=== PATIENT | male | born 1950 | race African-American/Black ===

== ENCOUNTER 2018-03-08 23:10 | Inpatient (IN) | payer MEDICARE, MEDICAID ==
[~2018-03-08] VITALS: Ht 180.3 cm; Wt 97.5 kg
[2018-03-09] MEDS ORDERED: ONDANSETRON HCL 4MG/2ML INJ IV STA (00:07)
[2018-03-09] MEDS ORDERED: MORPHINE SULFATE 10 MG/ML CPJ IV ONE (00:15)
[2018-03-09] MEDS ORDERED: ALBUMIN HUMAN 12.5G/250ML (5%) IV ONE (00:30)
[2018-03-09] MEDS ORDERED: SODIUM CHLORIDE 0.9% 500 ML IV ONE (00:30)
[2018-03-09] MEDS ORDERED: NOREPINEPHRINE 4 MG in DEXT 5% WATER 250 ML IV STA (00:58)
[2018-03-09] MEDS ORDERED: SODIUM CHLORIDE 0.9% 1000ML BAG (SEPSIS BOLUS) IV ONE (01:00)
[2018-03-09] MEDS ORDERED: LEVOFLOXACIN 750MG PREMIX 150 ML IV ONE (01:00)
[2018-03-09] MEDS ORDERED: METRONIDAZOLE 500 MG PREMIX 100 ML IV ONE (01:00)
[2018-03-09] MEDS ORDERED: PIPERACILLIN/TAZ 3.375G PREMIX 50 ML IV ONE (01:00)
[2018-03-09 01:54] LABS: BG BASE EXCESS 1.4 mmol/L (-2.0-2.0); BG CARBOXYHEMOGLOBIN 0.9 % (0.5-1.5); BG DEOXYHEMOGLOBIN 2.3 % (0.0-5.0); BG FRACTION INSPIRED OXYGEN 36; BG HCO3 ACT 24.9 mmol/L (22.0-26.0); BG METHEMOGLOBIN 0.4 % (0.0-1.5); BG OXYGEN SATURATION 97.7 % (92.0-98.5); BG OXYHEMOGLOBIN 96.4 % (94.0-97.0); BG PCO2 35.6 mmHg (35.0-45.0); BG PH 7.462 (7.350-7.450); BG PO2 99.9 mmHg (75.0-100.0); BG SAMPLE SITE RIGHT RADIAL; BG TOTAL HEMOGLOBIN 13.5 g/dL (12.0-18.0); BG VENT MODE NASAL CANNULA
[2018-03-09 02:02] LABS: HEMATOCRIT. 38.3 % (42.0-52.0); HEMOGLOBIN. 12.5 g/dL (14.0-18.0); MEAN CORPUSCULAR HEMOGLOBIN 27.7 pg (28.0-32.0); MEAN CORPUSCULAR VOLUME 85.3 fL (80.0-94.0); MEAN PLATELET VOLUME 7.3 fl (7.4-10.4); PLATELET 592 x1000/uL (130-400); RED BLOOD CELL COUNT 4.49 mill/uL (4.7-6.1); RED CELL DISTRIBUTION WIDTH 14.3 % (11.6-14.6)
[2018-03-09 02:13] LABS: CHLORIDE 91 mEq/L (98-107); INR 1.4; PROTHROMBIN TIME 13.6 sec (9.1-11.1)
[2018-03-09 02:37] LABS: PLATELET ESTIMATE INCREASED
[2018-03-09] MEDS: NOREPINEPHRINE 4MG/250ML PMX 250 ML IV PRN ×2 (02:46→18:07)
[2018-03-09] MEDS ORDERED: LORAZEPAM 2MG/ML CPJ IV PRN (06:30)
[2018-03-09] MEDS ORDERED: IPRATROPIUM/ALBUTEROL 0.5-3(2.5)MG/3ML NEB INH PRN (06:30)
[2018-03-09] MEDS ORDERED: NA PHOS,M-B/NA PHOS,DI-BA ENEMA 118ML PR PRN (06:30)
[2018-03-09] MEDS ORDERED: GUAIFENESIN 200MG/10ML SUGAR FREE UDC PO PRN (06:30)
[2018-03-09] MEDS ORDERED: CLONIDINE 0.1MG TABLET PO PRN (06:30)
[2018-03-09] MEDS ORDERED: DOCUSATE SODIUM 100MG CAPSULE PO PRN (06:30)
[2018-03-09] MEDS ORDERED: DIPHENHYDRAMINE 50MG/ML VIAL IV PRN (06:30)
[2018-03-09] MEDS ORDERED: HYDROCODONE/ACETAMINOPHEN 5/325MG TABLET PO PRN (06:30)
[2018-03-09] MEDS ORDERED: ACETAMINOPHEN 325MG TABLET PO PRN (06:30)
[2018-03-09] MEDS ORDERED: MAGNESIUM/ALUMINUM HYDROXIDE/SIMETHICONE 30ML UDC PO PRN (06:30)
[2018-03-09] MEDS ORDERED: MORPHINE SULFATE 4 MG/ML CPJ (NOT FOR IM USE) IV PRN (06:30)
[2018-03-09] MEDS ORDERED: ENOXAPARIN 40MG/0.4ML SYR SUBCUT NR (08:45)
[2018-03-09] MEDS ORDERED: DEXT 5%/0.45% NACL 1000ML 1,000 ML IV SCH (10:00)
[2018-03-09 13:34] LABS: CLARITY URINE TURBID (CLEAR); COLOR URINE DARK YELLOW (YELLOW); KETONES URINE TRACE (NEGATIVE); LEUKOCYTE ESTERASE URINE TRACE (NEGATIVE); NITRITE URINE NEGATIVE (NEGATIVE); OCCULT BLOOD URINE NEGATIVE (NEGATIVE); PROTEIN URINE 1+ (NEGATIVE); SPECIFIC GRAVITY URINE 1.019 (1.005-1.030)
[2018-03-09 13:59] LABS: *AMPHETAMINES SCREEN URINE NEGATIVE (NEGATIVE); *BARBITURATES SCREEN URINE NEGATIVE (NEGATIVE); *BENZODIAZEPINES SCREEN URINE NEGATIVE (NEGATIVE); *COCAINE SCREEN URINE NEGATIVE (NEGATIVE); METHADONE URINE SCREEN NEGATIVE (NEGATIVE); OPIATES URINE SCREEN NEGATIVE (NEGATIVE)
[2018-03-09 14:00] LABS: CANNABINOID URINE SCREEN NEGATIVE (NEGATIVE); PHENCYCLIDINE URINE SCREEN NEGATIVE (NEGATIVE)
[2018-03-09] MEDS ORDERED: METRONIDAZOLE 500 MG PREMIX 100 ML IV SCH ×2 (14:00)
[2018-03-09] MEDS ORDERED: HYDRALAZINE 20MG/ML VIAL IV PRN (15:00)
[2018-03-09 15:45] LABS: CHLORIDE 94 mEq/L (98-107)
[2018-03-09] MEDS ORDERED: PIPERACILLIN/TAZ 3.375G PREMIX 50 ML IV NR (19:45)
[2018-03-09] MEDS: ENOXAPARIN 30MG/0.3ML SYR SUBCUT SCH (22:10)
[2018-03-10] VITALS (60 sets, daily range): BP systolic 62–162; BP diastolic 34–94
[2018-03-10] MEDS ORDERED: LEVOFLOXACIN 500MG PREMIX 100 ML IV SCH ×2 (02:00→10:15)
[2018-03-10] MEDS ORDERED: VANCOMYCIN 1500MG in DEXTROSE 5% WATER 250ML IV NR (03:00)
[2018-03-10] MEDS ORDERED: PIPERACILLIN/TAZ 3.375G PREMIX 50 ML IV SCH (04:00)
[2018-03-10] MEDS ORDERED: PIPERACILLIN/TAZ 2.25G PREMIX 50 ML IV NR (06:00)
[2018-03-10 06:39] LABS: CHLORIDE 95 mEq/L (98-107)
[2018-03-10 06:46] LABS: LDL CHOLESTEROL 46 mg/dL (5-100)
[2018-03-10 06:47] LABS: HDL CHOLESTEROL 31 mg/dL (40-59)
[2018-03-10 06:48] LABS: T4 FREE 1.46 ng/dL (0.76-1.46)
[2018-03-10 06:49] LABS: BASOPHILS % 0.3 % (0.0-2.0); EOSINOPHILS % 0.3 % (0.0-5.0); HEMATOCRIT. 37.2 % (42.0-52.0); HEMOGLOBIN. 12.1 g/dL (14.0-18.0); LYMPHOCYTES % 8.2 % (20.0-50.0); MEAN CORPUSCULAR HEMOGLOBIN 27.7 pg (28.0-32.0); MEAN CORPUSCULAR VOLUME 85.1 fL (80.0-94.0); MEAN PLATELET VOLUME 7.1 fl (7.4-10.4); MONOCYTES % 8.3 % (2.0-8.0); NEUTROPHILS % 82.9 % (40.0-76.0); PLATELET 523 x1000/uL (130-400); RED BLOOD CELL COUNT 4.37 mill/uL (4.7-6.1); RED CELL DISTRIBUTION WIDTH 14.8 % (11.6-14.6)
[2018-03-10] MEDS ORDERED: NOREPINEPHRINE 4 MG in DEXT 5% WATER 250 ML IV STA (06:50)
[2018-03-10] MEDS ORDERED: NOREPINEPHRINE 4 MG in DEXT 5% WATER 250 ML IV PRN (07:00)
[2018-03-10] MEDS ORDERED: PROPOFOL 200MG/20ML VIAL IV ONE (08:50)
[2018-03-10] MEDS ORDERED: ROCURONIUM BROMIDE 10MG/ML VIAL 5ML IV ONE ×2 (08:50→10:02)
[2018-03-10] MEDS ORDERED: MIDAZOLAM HCL 2 MG/2 ML VIAL ONE (08:51)
[2018-03-10] MEDS ORDERED: EPHEDRINE SULFATE 50MG/ML VIAL ONE (08:52)
[2018-03-10] MEDS ORDERED: PHENYLEPHRINE HCL 10 MG/ML 1ML (IV VIAL) IV ONE (08:52)
[2018-03-10] MEDS ORDERED: FENTANYL CITRATE/PF 50MCG/ML 2ML VIAL ONE (08:56)
[2018-03-10] MEDS ORDERED: ONDANSETRON HCL 4MG/2ML INJ ONE (08:56)
[2018-03-10] MEDS ORDERED: CEFAZOLIN SODIUM 1000MG/VIAL ONE (09:50)
[2018-03-10] MEDS ORDERED: GLYCOPYRROLATE 0.2 MG/ML 2ML VIAL ONE ×2 (10:08→10:23)
[2018-03-10] MEDS ORDERED: NEOSTIGMINE METHYLSULFATE 1MG/ML 10 ML VIAL ONE ×2 (10:08→11:01)
[2018-03-10] MEDS ORDERED: ONDANSETRON HCL 4MG/2ML INJ IV PRN (10:15)
[2018-03-10] MEDS ORDERED: SODIUM CHLORIDE 0.9% 1,000 ML IV ONE ×2 (12:00→20:30)
[2018-03-10] MEDS ORDERED: NOREPINEPHRINE 4MG/250ML PMX 250 ML IV PRN (14:30)
[2018-03-10] MEDS ORDERED: NOREPINEPHRINE 4 MG in DEXTROSE 5% WATER 250 ML IV PRN (15:00)
[2018-03-10] MEDS ORDERED: METRONIDAZOLE 500 MG PREMIX 100 ML IV SCH (15:30)
[2018-03-10] MEDS: METRONIDAZOLE 500 MG PREMIX 100 ML IV SCH ×2 (16:23→23:52)
[2018-03-10] MEDS: DEXT 5%/0.45% NACL KCL 20MEQ/L 1,000 ML IV SCH (16:38)
[2018-03-10] MEDS: NOREPINEPHRINE 16 MG in DEXT 5% WATER 234 ML IV PRN (19:28)
[2018-03-10] MEDS ORDERED: ALBUMIN HUMAN 25GM/500ML (5%) IV NR (20:30)
[2018-03-10] MEDS: ENOXAPARIN 30MG/0.3ML SYR SUBCUT SCH (21:33)
[2018-03-10] MEDS: FAMOTIDINE 20MG/2ML VIAL IV SCH (21:33)
[2018-03-10] MEDS: MORPHINE SULFATE 4 MG/ML CPJ (NOT FOR IM USE) IV PRN (21:35)
[2018-03-10] MEDS: LEVOFLOXACIN 250MG PREMIX 50 ML IV SCH (22:44)
[2018-03-11] VITALS (99 sets, daily range): BP systolic 76–152; BP diastolic 16–114
[2018-03-11] MEDS: MORPHINE SULFATE 4 MG/ML CPJ (NOT FOR IM USE) IV PRN ×5 (01:38→22:18)
[2018-03-11] MEDS: DEXT 5%/0.45% NACL KCL 20MEQ/L 1,000 ML IV SCH ×3 (02:35→16:15)
[2018-03-11] MEDS: NOREPINEPHRINE 16 MG in DEXT 5% WATER 234 ML IV PRN (04:30)
[2018-03-11 05:27] LABS: BASOPHILS % 0.6 % (0.0-2.0); EOSINOPHILS % 1.9 % (0.0-5.0); HEMATOCRIT. 34.4 % (42.0-52.0); HEMOGLOBIN. 11.1 g/dL (14.0-18.0); LYMPHOCYTES % 11.2 % (20.0-50.0); MEAN CORPUSCULAR HEMOGLOBIN 27.4 pg (28.0-32.0); MEAN PLATELET VOLUME 7.3 fl (7.4-10.4); MONOCYTES % 8.2 % (2.0-8.0); NEUTROPHILS % 78.1 % (40.0-76.0); PLATELET 462 x1000/uL (130-400); RED BLOOD CELL COUNT 4.04 mill/uL (4.7-6.1); RED CELL DISTRIBUTION WIDTH 14.7 % (11.6-14.6)
[2018-03-11] MEDS: METRONIDAZOLE 500 MG PREMIX 100 ML IV SCH ×3 (07:15→23:15)
[2018-03-11] MEDS ORDERED: ENOXAPARIN 30MG/0.3ML SYR SUBCUT SCH (21:00)
[2018-03-11] MEDS: FAMOTIDINE 20MG/2ML VIAL IV SCH (22:13)
[2018-03-11] MEDS: LEVOFLOXACIN 250MG PREMIX 50 ML IV SCH (22:14)
[2018-03-12] VITALS (82 sets, daily range): BP systolic 84–168; BP diastolic 23–103
[2018-03-12] MEDS: DEXT 5%/0.45% NACL KCL 20MEQ/L 1,000 ML IV SCH ×3 (01:21→20:15)
[2018-03-12 05:49] LABS: BASOPHILS % 0.7 % (0.0-2.0); EOSINOPHILS % 3.5 % (0.0-5.0); HEMATOCRIT. 32.1 % (42.0-52.0); HEMOGLOBIN. 10.4 g/dL (14.0-18.0); LYMPHOCYTES % 11.5 % (20.0-50.0); MEAN CORPUSCULAR HEMOGLOBIN 27.7 pg (28.0-32.0); MEAN CORPUSCULAR VOLUME 85.9 fL (80.0-94.0); MEAN PLATELET VOLUME 7.2 fl (7.4-10.4); NEUTROPHILS % 75.3 % (40.0-76.0); PLATELET 354 x1000/uL (130-400); RED BLOOD CELL COUNT 3.74 mill/uL (4.7-6.1); RED CELL DISTRIBUTION WIDTH 14.4 % (11.6-14.6)
[2018-03-12 06:15] LABS: CHLORIDE 107 mEq/L (98-107)
[2018-03-12] MEDS: METRONIDAZOLE 500 MG PREMIX 100 ML IV SCH ×3 (07:02→23:46)
[2018-03-12] MEDS: MORPHINE SULFATE 4 MG/ML CPJ (NOT FOR IM USE) IV PRN ×3 (09:01→21:09)
[2018-03-12] MEDS: FAMOTIDINE 20MG/2ML VIAL IV SCH (21:08)
[2018-03-12] MEDS: LEVOFLOXACIN 250MG PREMIX 50 ML IV SCH (23:46)
[2018-03-13] VITALS (49 sets, daily range): BP systolic 95–168; BP diastolic 37–93
[2018-03-13] MEDS: MORPHINE SULFATE 4 MG/ML CPJ (NOT FOR IM USE) IV PRN ×4 (02:28→16:36)
[2018-03-13 05:25] LABS: BASOPHILS % 0.8 % (0.0-2.0); EOSINOPHILS % 2.7 % (0.0-5.0); HEMATOCRIT. 32.6 % (42.0-52.0); HEMOGLOBIN. 10.5 g/dL (14.0-18.0); LYMPHOCYTES % 13.1 % (20.0-50.0); MEAN CORPUSCULAR HEMOGLOBIN 27.4 pg (28.0-32.0); MEAN CORPUSCULAR VOLUME 85.4 fL (80.0-94.0); MONOCYTES % 10.6 % (2.0-8.0); NEUTROPHILS % 72.8 % (40.0-76.0); PLATELET 334 x1000/uL (130-400); RED BLOOD CELL COUNT 3.81 mill/uL (4.7-6.1); RED CELL DISTRIBUTION WIDTH 14.4 % (11.6-14.6)
[2018-03-13 08:05] LABS: CHLORIDE 110 mEq/L (98-107)
[2018-03-13] MEDS: METRONIDAZOLE 500 MG PREMIX 100 ML IV SCH ×2 (08:48→15:51)
[2018-03-13] MEDS: DEXT 5%/0.45% NACL KCL 20MEQ/L 1,000 ML IV SCH (15:24)
[2018-03-13] MEDS: FAMOTIDINE 20MG/2ML VIAL IV SCH (20:18)
[2018-03-13] MEDS: ONDANSETRON HCL 4MG/2ML INJ IV PRN (20:19)
[2018-03-14] VITALS (12 sets, daily range): BP systolic 118–134; BP diastolic 71–94
[2018-03-14] MEDS: ONDANSETRON HCL 4MG/2ML INJ IV PRN ×2 (06:19→12:51)
[2018-03-14] MEDS: MORPHINE SULFATE 4 MG/ML CPJ (NOT FOR IM USE) IV PRN ×4 (06:19→22:49)
[2018-03-14] MEDS: LEVOFLOXACIN 500MG PREMIX 100 ML IV SCH ×2 (06:25→22:44)
[2018-03-14] MEDS: METRONIDAZOLE 500 MG PREMIX 100 ML IV SCH ×4 (06:26→23:50)
[2018-03-14] MEDS: DEXT 5%/0.45% NACL KCL 20MEQ/L 1,000 ML IV SCH (15:51)
[2018-03-14] MEDS: FAMOTIDINE 20MG/2ML VIAL IV SCH (20:23)
[2018-03-15] VITALS (12 sets, daily range): BP systolic 114–133; BP diastolic 64–95
[2018-03-15] MEDS: MORPHINE SULFATE 4 MG/ML CPJ (NOT FOR IM USE) IV PRN ×2 (04:21→09:50)
[2018-03-15] MEDS: DEXT 5%/0.45% NACL KCL 20MEQ/L 1,000 ML IV SCH (05:00)
[2018-03-15 07:07] LABS: BASOPHILS % 0.8 % (0.0-2.0); EOSINOPHILS % 0.6 % (0.0-5.0); HEMATOCRIT. 32.7 % (42.0-52.0); HEMOGLOBIN. 10.6 g/dL (14.0-18.0); LYMPHOCYTES % 11.9 % (20.0-50.0); MEAN CORPUSCULAR HEMOGLOBIN 27.6 pg (28.0-32.0); MEAN CORPUSCULAR VOLUME 85.2 fL (80.0-94.0); MONOCYTES % 14.7 % (2.0-8.0); PLATELET 372 x1000/uL (130-400); RED BLOOD CELL COUNT 3.84 mill/uL (4.7-6.1); RED CELL DISTRIBUTION WIDTH 14.5 % (11.6-14.6)
[2018-03-15] MEDS: METRONIDAZOLE 500 MG PREMIX 100 ML IV SCH ×3 (08:18→23:33)
[2018-03-15 09:37] LABS: CHLORIDE 110 mEq/L (98-107)
[2018-03-15] MEDS: ONDANSETRON HCL 4MG/2ML INJ IV PRN ×2 (16:21→21:30)
[2018-03-15] MEDS: HYDROCODONE/ACETAMINOPHEN 10/325MG TABLET PO PRN (21:28)
[2018-03-15] MEDS: FAMOTIDINE 20MG/2ML VIAL IV SCH (21:28)
[2018-03-15] MEDS: LEVOFLOXACIN 500MG PREMIX 100 ML IV SCH (22:18)
[2018-03-16] VITALS (9 sets, daily range): BP systolic 115–139; BP diastolic 75–86
[2018-03-16] MEDS: DEXT 5%/0.45% NACL KCL 20MEQ/L 1,000 ML IV SCH ×2 (07:30→17:42)
[2018-03-16] MEDS: METRONIDAZOLE 500 MG PREMIX 100 ML IV SCH ×2 (08:26→15:38)
[2018-03-16] MEDS: SIMETHICONE 80MG TABLET CHEW PO PRN (15:38)
[2018-03-16] MEDS: ONDANSETRON HCL 4MG/2ML INJ IV PRN (17:42)
[2018-03-16] MEDS: HYDROCODONE/ACETAMINOPHEN 10/325MG TABLET PO PRN (17:45)
[2018-03-16] MEDS: FAMOTIDINE 20MG/2ML VIAL IV SCH (21:11)
[2018-03-16] MEDS: METOPROLOL TARTRATE 25MG TABLET PO SCH (21:12)
[2018-03-17] VITALS: BP 147/91
[2018-03-17] MEDS: METRONIDAZOLE 500 MG PREMIX 100 ML IV SCH ×3 (00:22→15:25)
[2018-03-17] MEDS: LEVOFLOXACIN 500MG PREMIX 100 ML IV SCH ×2 (00:22→22:58)
[2018-03-17 04:00] VITALS: BP 125/87
[2018-03-17 08:00] VITALS: BP 123/87
[2018-03-17] MEDS: METOPROLOL TARTRATE 25MG TABLET PO SCH ×2 (09:01→20:50)
[2018-03-17 12:00] VITALS: BP 129/89
[2018-03-17] MEDS: HYDROCODONE/ACETAMINOPHEN 10/325MG TABLET PO PRN (15:24)
[2018-03-17] MEDS: SIMETHICONE 80MG TABLET CHEW PO PRN (15:24)
[2018-03-17 16:00] VITALS: BP 142/84
[2018-03-17 16:40] LABS: HEMATOCRIT. 31.4 % (42.0-52.0); HEMOGLOBIN. 10.1 g/dL (14.0-18.0); MEAN CORPUSCULAR HEMOGLOBIN 27.2 pg (28.0-32.0); MEAN CORPUSCULAR VOLUME 85.2 fL (80.0-94.0); MEAN PLATELET VOLUME 7.2 fl (7.4-10.4); PLATELET 378 x1000/uL (130-400); RED BLOOD CELL COUNT 3.69 mill/uL (4.7-6.1); RED CELL DISTRIBUTION WIDTH 15.2 % (11.6-14.6)
[2018-03-17 16:48] LABS: CHLORIDE 106 mEq/L (98-107)
[2018-03-17 17:50] LABS: PLATELET ESTIMATE NORMAL
[2018-03-17] MEDS: DEXT 5%/0.45% NACL KCL 20MEQ/L 1,000 ML IV SCH (18:22)
[2018-03-17 20:00] VITALS: BP 137/80
[2018-03-17] MEDS: FAMOTIDINE 20MG/2ML VIAL IV SCH (20:50)
[2018-03-18] VITALS: BP 100/79
[2018-03-18 04:00] VITALS: BP 104/72
[2018-03-18 08:00] VITALS: BP 119/76
[2018-03-18] MEDS: METOPROLOL TARTRATE 25MG TABLET PO SCH (09:54)
[2018-03-18 10:02] VITALS: BP 119/76
[2018-03-18 11:51] VITALS: BP 117/81
[2018-03-18] MEDS: DEXT 5%/0.45% NACL KCL 20MEQ/L 1,000 ML IV SCH (13:00)
[2018-03-18] MEDS: HYDROCODONE/ACETAMINOPHEN 10/325MG TABLET PO PRN (14:04)
[2018-03-18 15:55] VITALS: BP 127/87
== END 2018-03-18 17:30 | disposition home health service (06) | DRG 710 ==
LOC: ER 23:10 → EDBEDREQTM 03-09 01:17 → EDBEDREQ 03-09 01:17 → EDBEDREQSVC 03-09 01:17 → MICUSO 03-10 13:14 → 5EST 03-13 18:16 → 8WST 03-16 16:49
PROVIDERS: ADMIT Internal Medicine; ATTEND Internal Medicine
PROC: 30233K1 Transfusion of Nonautologous Frozen Plasma into Peripheral Vein, Percutaneous Approach (ICD-10-PCS; 2018-03-09)
PROC: 05HY33Z Insertion of Infusion Device into Upper Vein, Percutaneous Approach (ICD-10-PCS; 2018-03-09)
PROC: 0DN80ZZ Release Small Intestine, Open Approach (ICD-10-PCS; principal; 2018-03-10)
DX: A41.9 Sepsis, unspecified organism (principal); J96.00 Acute respiratory failure, unspecified whether with hypoxia or hypercapnia; R65.21 Severe sepsis with septic shock; J69.0 Pneumonitis due to inhalation of food and vomit; G93.41 Metabolic encephalopathy; K55.9 Vascular disorder of intestine, unspecified; K56.609 Unspecified intestinal obstruction, unspecified as to partial versus complete obstruction; I11.0 Hypertensive heart disease with heart failure; E86.0 Dehydration; D64.9 Anemia, unspecified; E66.01 Morbid (severe) obesity due to excess calories; G89.29 Other chronic pain; I25.10 Atherosclerotic heart disease of native coronary artery without angina pectoris; K66.0 Peritoneal adhesions (postprocedural) (postinfection); M25.562 Pain in left knee; I50.42 Chronic combined systolic (congestive) and diastolic (congestive) heart failure; K56.7 Ileus, unspecified; Z82.49 Family history of ischemic heart disease and other diseases of the circulatory system; Z83.3 Family history of diabetes mellitus; Z68.30 Body mass index [BMI] 30.0-30.9, adult
CPT/HCPCS: 36415; 36556; 36600; 71045; 73560; 74018; 74176; 80048; 80061; 80305; 82375; 82805; 83605; 83880; 84439; 84443; 84484; 84550; 86850; 86900; 86927; 93005; 93306; 93970; 97110; 97163; 97167; 97535; 99291; G0482; J0690; J1650; J1956; J2250; J2270; J2370; J2405; J2543; J2704; J2710; J3010; J3370; J3490; J7030; J7040; J7060; P9017; P9041

== ENCOUNTER 2019-07-25 10:35 | Inpatient (IN) | payer MEDICARE, MEDICAID ==
[~2019-07-25] VITALS: Ht 179.1 cm; Wt 83.5 kg
[2019-07-25] MEDS ORDERED: SODIUM CHLORIDE 0.9% 1000ML BAG (SEPSIS BOLUS) IV ONE (11:00)
[2019-07-25] MEDS ORDERED: PIPERACILLIN/TAZ 3.375G PREMIX 50 ML IV ONE (11:15)
[2019-07-25] MEDS ORDERED: VANCOMYCIN 1 G PREMIX 200 ML IV ONE (11:15)
[2019-07-25 11:33] LABS: HEMATOCRIT. 31.9 % (42.0-52.0); HEMOGLOBIN. 10.8 g/dL (14.0-18.0); MEAN CORPUSCULAR HEMOGLOBIN 30.8 pg (28.0-32.0); MEAN CORPUSCULAR VOLUME 90.5 fL (80.0-94.0); MEAN PLATELET VOLUME 6.9 fl (7.4-10.4); PLATELET 643 x1000/uL (130-400); RED BLOOD CELL COUNT 3.52 mill/uL (4.7-6.1)
[2019-07-25 11:40] LABS: CHLORIDE 106 mEq/L (98-107)
[2019-07-25 11:42] LABS: INR 1.1; PROTHROMBIN TIME 11.6 sec (9.6-11.0)
[2019-07-25] MEDS: SODIUM CHLORIDE 0.9% 1,000 ML IV SCH (12:10)
[2019-07-25 12:12] LABS: PLATELET ESTIMATE INCREASED
[2019-07-25] MEDS ORDERED: CLONIDINE 0.1MG TABLET PO PRN (12:15)
[2019-07-25] MEDS ORDERED: DIPHENHYDRAMINE 50MG/ML VIAL IV PRN (12:15)
[2019-07-25] MEDS ORDERED: GUAIFENESIN 200MG/10ML SUGAR FREE UDC PO PRN (12:15)
[2019-07-25] MEDS ORDERED: NA PHOS,M-B/NA PHOS,DI-BA ENEMA 118ML PR PRN (12:15)
[2019-07-25] MEDS ORDERED: ACETAMINOPHEN 325MG TABLET PO PRN (12:15)
[2019-07-25] MEDS ORDERED: MAGNESIUM/ALUMINUM HYDROXIDE/SIMETHICONE 30ML UDC PO PRN (12:15)
[2019-07-25] MEDS ORDERED: HYDROCODONE/ACETAMINOPHEN 5/325MG TABLET PO PRN (12:15)
[2019-07-25] MEDS ORDERED: LORAZEPAM 2MG/ML CPJ IV PRN (12:15)
[2019-07-25] MEDS ORDERED: IPRATROPIUM/ALBUTEROL 0.5-3(2.5)MG/3ML NEB NEB PRN (12:15)
[2019-07-25] MEDS ORDERED: DOCUSATE SODIUM 100MG CAPSULE PO PRN (12:15)
[2019-07-25] MEDS ORDERED: ONDANSETRON HCL 4MG/2ML INJ IV PRN (12:15)
[2019-07-25] MEDS: ENOXAPARIN 40MG/0.4ML SYR SUBCUT SCH (12:43)
[2019-07-25 13:34] LABS: CLARITY URINE CLEAR (CLEAR); COLOR URINE YELLOW (YELLOW); KETONES URINE NEGATIVE (NEGATIVE); LEUKOCYTE ESTERASE URINE NEGATIVE (NEGATIVE); NITRITE URINE NEGATIVE (NEGATIVE); OCCULT BLOOD URINE NEGATIVE (NEGATIVE); PH URINE 5.5 (4.5-8.0); PROTEIN URINE NEGATIVE (NEGATIVE); SPECIFIC GRAVITY URINE 1.011 (1.005-1.030); UROBILINOGEN URINE 0.2 E.U./dL (0.2-1.0)
[2019-07-25 16:00] VITALS: BP 105/60
[2019-07-25] MEDS ORDERED: [UNRECOGNIZED DRUG - CODE] PO (17:19)
[2019-07-25] MEDS ORDERED: BENA40TA9 PO (17:19)
[2019-07-25] MEDS ORDERED: ASPI-1158 PO (17:19)
[2019-07-25] MEDS ORDERED: ATOR40TA70 MT (17:19)
[2019-07-25] MEDS ORDERED: POTA8CAP20 MT (17:19)
[2019-07-25] MEDS ORDERED: CARV6.2548 MT (17:19)
[2019-07-25] MEDS ORDERED: FURO40TA5 PO (17:19)
[2019-07-25 18:02] VITALS: BP 118/37
[2019-07-25 20:01] VITALS: BP 123/72
[2019-07-25] MEDS: ATORVASTATIN CALCIUM 40MG TABLET PO SCH (20:51)
[2019-07-25] MEDS: NAPROXEN 375MG TABLET PO SCH (21:42)
[2019-07-25 22:01] VITALS: BP 112/67
[2019-07-26] VITALS (12 sets, daily range): BP systolic 96–150; BP diastolic 48–85
[2019-07-26] MEDS: SODIUM CHLORIDE 0.9% 1,000 ML IV SCH ×2 (05:27→21:21)
[2019-07-26] MEDS ORDERED: FUROSEMIDE 40MG TABLET PO SCH (07:15)
[2019-07-26 07:25] LABS: BASOPHILS % 1.7 % (0.0-2.0); EOSINOPHILS % 2.5 % (0.0-5.0); HEMATOCRIT. 30.1 % (42.0-52.0); HEMOGLOBIN. 10.1 g/dL (14.0-18.0); LYMPHOCYTES % 19.6 % (20.0-50.0); MEAN CORPUSCULAR HEMOGLOBIN 30.5 pg (28.0-32.0); MEAN PLATELET VOLUME 7.1 fl (7.4-10.4); MONOCYTES % 6.2 % (2.0-8.0); PLATELET 594 x1000/uL (130-400); RED BLOOD CELL COUNT 3.31 mill/uL (4.7-6.1); RED CELL DISTRIBUTION WIDTH 14.3 % (11.6-14.6)
[2019-07-26 07:49] LABS: CHLORIDE 114 mEq/L (98-107)
[2019-07-26] MEDS: NAPROXEN 375MG TABLET PO SCH ×2 (08:12→17:18)
[2019-07-26] MEDS: POTASSIUM CHLORIDE 20MEQ TABLET SR PO SCH (08:12)
[2019-07-26] MEDS: BENAZEPRIL 10MG TABLET PO SCH (08:12)
[2019-07-26 08:13] LABS: LDL CHOLESTEROL 90 mg/dL (5-100)
[2019-07-26] MEDS: CARVEDILOL 6.25 MG TABLET PO SCH (08:13)
[2019-07-26] MEDS: ENOXAPARIN 40MG/0.4ML SYR SUBCUT SCH (08:13)
[2019-07-26] MEDS: ASPIRIN 81MG EC TABLET PO SCH (08:13)
[2019-07-26 08:16] LABS: HDL CHOLESTEROL 27 mg/dL (40-59); T4 FREE 1.29 ng/dL (0.76-1.46)
[2019-07-26] MEDS ORDERED: ASPIRIN 81MG EC TABLET PO SCH (09:00)
[2019-07-26] MEDS: FUROSEMIDE 40MG/4ML VIAL IVP SCH (17:18)
[2019-07-26] MEDS ORDERED: POTASSIUM CHLORIDE 20MEQ TABLET SR PO NR (17:30)
[2019-07-26] MEDS: ATORVASTATIN CALCIUM 40MG TABLET PO SCH (21:19)
[2019-07-27] VITALS (12 sets, daily range): BP systolic 106–136; BP diastolic 59–81
[2019-07-27 07:27] LABS: BASOPHILS % 1.4 % (0.0-2.0); EOSINOPHILS % 2.1 % (0.0-5.0); HEMATOCRIT. 30.2 % (42.0-52.0); HEMOGLOBIN. 10.1 g/dL (14.0-18.0); LYMPHOCYTES % 18.3 % (20.0-50.0); MEAN CORPUSCULAR HEMOGLOBIN 30.2 pg (28.0-32.0); MEAN CORPUSCULAR VOLUME 90.7 fL (80.0-94.0); MEAN PLATELET VOLUME 6.9 fl (7.4-10.4); MONOCYTES % 6.6 % (2.0-8.0); NEUTROPHILS % 71.6 % (40.0-76.0); PLATELET 617 x1000/uL (130-400); RED BLOOD CELL COUNT 3.33 mill/uL (4.7-6.1); RED CELL DISTRIBUTION WIDTH 14.1 % (11.6-14.6)
[2019-07-27 07:29] LABS: CHLORIDE 111 mEq/L (98-107)
[2019-07-27] MEDS: FUROSEMIDE 40MG/4ML VIAL IVP SCH ×2 (08:37→16:33)
[2019-07-27] MEDS: CARVEDILOL 6.25 MG TABLET PO SCH (08:37)
[2019-07-27] MEDS: BENAZEPRIL 10MG TABLET PO SCH (08:38)
[2019-07-27] MEDS: NAPROXEN 375MG TABLET PO SCH ×2 (08:38→16:33)
[2019-07-27] MEDS: POTASSIUM CHLORIDE 20MEQ TABLET SR PO SCH (08:38)
[2019-07-27] MEDS: ASPIRIN 81MG EC TABLET PO SCH (08:39)
[2019-07-27] MEDS: ENOXAPARIN 40MG/0.4ML SYR SUBCUT SCH (08:39)
[2019-07-27] MEDS ORDERED: FUROSEMIDE 40MG TABLET PO SCH (09:00)
[2019-07-27] MEDS ORDERED: POTASSIUM CHLORIDE 20MEQ TABLET SR PO SCH (10:00)
[2019-07-27] MEDS: SODIUM CHLORIDE 0.9% 1,000 ML IV SCH (14:14)
[2019-07-27] MEDS: ATORVASTATIN CALCIUM 40MG TABLET PO SCH (21:19)
[2019-07-28] VITALS (11 sets, daily range): BP systolic 100–116; BP diastolic 43–79
[2019-07-28 06:55] LABS: BASOPHILS % 1.2 % (0.0-2.0); EOSINOPHILS % 2.2 % (0.0-5.0); HEMATOCRIT. 31.5 % (42.0-52.0); HEMOGLOBIN. 10.5 g/dL (14.0-18.0); LYMPHOCYTES % 20.9 % (20.0-50.0); MEAN CORPUSCULAR HEMOGLOBIN 29.8 pg (28.0-32.0); MEAN CORPUSCULAR VOLUME 89.8 fL (80.0-94.0); MEAN PLATELET VOLUME 6.9 fl (7.4-10.4); NEUTROPHILS % 67.7 % (40.0-76.0); PLATELET 664 x1000/uL (130-400); RED BLOOD CELL COUNT 3.51 mill/uL (4.7-6.1)
[2019-07-28 07:11] LABS: CHLORIDE 112 mEq/L (98-107)
[2019-07-28 07:18] LABS: PHOSPHORUS 2.5 mg/dL (2.5-4.9)
[2019-07-28 07:30] LABS: HEPATITIS B SURFACE ANTIGEN NEGATIVE
[2019-07-28] MEDS: ASPIRIN 81MG EC TABLET PO SCH (08:52)
[2019-07-28] MEDS: ENOXAPARIN 40MG/0.4ML SYR SUBCUT SCH (08:53)
[2019-07-28] MEDS: FUROSEMIDE 40MG/4ML VIAL IVP SCH ×2 (08:53→17:00)
[2019-07-28] MEDS: POTASSIUM CHLORIDE 20MEQ TABLET SR PO SCH (08:53)
[2019-07-28] MEDS: CARVEDILOL 6.25 MG TABLET PO SCH (08:53)
[2019-07-28] MEDS: BENAZEPRIL 10MG TABLET PO SCH (09:05)
== END 2019-07-28 18:24 | disposition home health service (06) | DRG 52 ==
LOC: ER 10:35 → 3WST 12:06 → EDBEDREQTM 12:11 → EDBEDREQ 12:11 → ENRESERV 14:56
PROVIDERS: ADMIT Internal Medicine; ATTEND Internal Medicine
DX: G93.41 Metabolic encephalopathy (principal); N17.0 Acute kidney failure with tubular necrosis; I50.33 Acute on chronic diastolic (congestive) heart failure; I95.9 Hypotension, unspecified; E44.0 Moderate protein-calorie malnutrition; E87.2 Acidosis; I11.0 Hypertensive heart disease with heart failure; E86.0 Dehydration; E86.9 Volume depletion, unspecified; Z68.26 Body mass index [BMI] 26.0-26.9, adult; D64.9 Anemia, unspecified; E78.1 Pure hyperglyceridemia; R74.0 Nonspecific elevation of levels of transaminase and lactic acid dehydrogenase [LDH]; E87.6 Hypokalemia; M19.90 Unspecified osteoarthritis, unspecified site; Z82.49 Family history of ischemic heart disease and other diseases of the circulatory system; Z79.899 Other long term (current) drug therapy; Z91.018 Allergy to other foods; Z79.82 Long term (current) use of aspirin
CPT/HCPCS: 36415; 71045; 76700; 80048; 80053; 80061; 81003; 83605; 83735; 83880; 84100; 84145; 84439; 84443; 84484; 85025; 85379; 86803; 87340; 93005; 93306; 97162; 99291; J1650; J1940; J2543; J3370; J7030

== ENCOUNTER 2020-09-14 21:40 | Inpatient (IN) | payer MEDICARE, MEDICAID ==
[~2020-09-14] VITALS: Ht 182.9 cm; Wt 103.9 kg
[~2020-09-14 21:40] MED LIST: ASPI-1406 PO; ATOR40TA70 MT; BENA40TA9 PO; CARV6.2548 MT; FURO40TA5 PO; POTA8CAP20 MT
[2020-09-14 23:57] LABS: BASOPHILS % 0.6 % (0.0-2.0); EOSINOPHILS % 0.5 % (0.0-5.0); HEMOGLOBIN. 10.6 g/dL (14.0-18.0); LYMPHOCYTES % 11.7 % (20.0-50.0); MEAN CORPUSCULAR HEMOGLOBIN 28.9 pg (28.0-32.0); MEAN CORPUSCULAR VOLUME 84.9 fL (80.0-94.0); MEAN PLATELET VOLUME 7.7 fl (7.4-10.4); MONOCYTES % 6.5 % (2.0-8.0); NEUTROPHILS % 80.7 % (40.0-76.0); PLATELET 659 x1000/uL (130-400); RED BLOOD CELL COUNT 3.66 mill/uL (4.7-6.1); RED CELL DISTRIBUTION WIDTH 14.8 % (11.6-14.6)
[2020-09-15 00:04] LABS: INR 1.2; PROTHROMBIN TIME 12.7 sec (9.6-11.0)
[2020-09-15 00:10] LABS: CHLORIDE 94 mEq/L (98-107)
[2020-09-15] MEDS ORDERED: CEFTRIAXONE 1 G PREMIX 50 ML IV NR (00:30)
[2020-09-15] MEDS ORDERED: POTASSIUM CHLORIDE 20MEQ TABLET SR PO NR (00:30)
[2020-09-15] MEDS ORDERED: SODIUM CHLORIDE 0.9% 1,000 ML IV ONE (00:30)
[2020-09-15] MEDS ORDERED: METRONIDAZOLE 500 MG PREMIX 100 ML IV NR (00:30)
[2020-09-15] MEDS ORDERED: VANCOMYCIN 1 G PREMIX 200 ML IV NR (00:30)
[2020-09-15] MEDS ORDERED: HYDROCODONE/ACETAMINOPHEN 10/325MG TABLET PO ONE (01:15)
[2020-09-15] MEDS: SODIUM BICARBONATE 100 MEQ in SODIUM CHLORIDE 0.45% 1,000 ML IV SCH ×2 (01:25→12:40)
[2020-09-15] MEDS ORDERED: SODIUM BICARBONATE 8.4% MEQ/ML 50ML VIAL IV ONE (01:30)
[2020-09-15] MEDS ORDERED: LACTATED RINGERS 1,000 ML IV ONE (04:30)
[2020-09-15 04:51] LABS: CLARITY URINE CLEAR (CLEAR); COLOR URINE DARK YELLOW (YELLOW); KETONES URINE TRACE (NEGATIVE); LEUKOCYTE ESTERASE URINE TRACE (NEGATIVE); NITRITE URINE NEGATIVE (NEGATIVE); OCCULT BLOOD URINE NEGATIVE (NEGATIVE); PROTEIN URINE NEGATIVE (NEGATIVE); SPECIFIC GRAVITY URINE 1.019 (1.005-1.030); UROBILINOGEN URINE 0.2 E.U./dL (0.2-1.0)
[2020-09-15 16:14] VITALS: BP 108/65
[2020-09-15] MEDS ORDERED: CLONIDINE 0.1MG TABLET PO PRN (18:15)
[2020-09-15] MEDS ORDERED: ONDANSETRON HCL 4MG/2ML INJ IV PRN (18:15)
[2020-09-15] MEDS ORDERED: DOCUSATE SODIUM 100MG CAPSULE PO PRN (18:15)
[2020-09-15] MEDS ORDERED: IPRATROPIUM/ALBUTEROL 0.5-3(2.5)MG/3ML NEB HHN PRN (18:15)
[2020-09-15] MEDS ORDERED: DEXT 5%/0.9% NACL KCL 20MEQ/L 1,000 ML IV SCH (18:30)
[2020-09-15] MEDS: PANTOPRAZOLE SODIUM 40 MG/VIAL IV SCH (18:30)
[2020-09-15] MEDS: METRONIDAZOLE 500 MG PREMIX 100 ML IV SCH (19:41)
[2020-09-15] MEDS: ENOXAPARIN 40MG/0.4ML SYR SUBCUT SCH (19:42)
[2020-09-15] MEDS ORDERED: DEXT 5%/0.9% NACL 1,000 ML IV SCH (20:30)
[2020-09-15] MEDS ORDERED: NALOXONE HCL 0.4MG/ML VIAL IV PRN (20:30)
[2020-09-15] MEDS ORDERED: VANCOMYCIN 750 MG PREMIX 150 ML IV SCH (21:00)
[2020-09-15] MEDS: CEFTRIAXONE 1,000 MG in DEXTROSE 5% WATER 50 ML IV SCH (22:34)
[2020-09-15 23:48] LABS: HEMOGLOBIN 9.7 g/dL (14.0-18.0); MEAN CORPUSCULAR HEMOGLOBIN 28.5 pg (28.0-32.0); MEAN CORPUSCULAR VOLUME 84.8 fL (80.0-94.0); PLATELET 731 x1000/uL (130-400); RED BLOOD CELL COUNT 3.42 mill/uL (4.7-6.1)
[2020-09-15 23:53] LABS: CHLORIDE 101 mEq/L (98-107)
[2020-09-16] VITALS: BP 93/56
[2020-09-16] MEDS ORDERED: DEXT 5%/0.45% NACL KCL 40MEQ/L 1,000 ML IV ONE (01:30)
[2020-09-16] MEDS: METRONIDAZOLE 500 MG PREMIX 100 ML IV SCH ×3 (02:22→18:49)
[2020-09-16] MEDS: MORPHINE SULFATE 2 MG/ML CPJ (NOT FOR IM USE) IV PRN ×3 (05:05→19:11)
[2020-09-16 06:56] LABS: T4 FREE 1.27 ng/dL (0.76-1.46)
[2020-09-16 08:00] VITALS: BP 97/80
[2020-09-16] MEDS: PANTOPRAZOLE SODIUM 40 MG/VIAL IV SCH (09:51)
[2020-09-16 10:19] LABS: HEMATOCRIT. 30.9 % (42.0-52.0); HEMOGLOBIN. 10.1 g/dL (14.0-18.0); MEAN CORPUSCULAR HEMOGLOBIN 28.1 pg (28.0-32.0); MEAN CORPUSCULAR VOLUME 86.5 fL (80.0-94.0); MEAN PLATELET VOLUME 7.6 fl (7.4-10.4); PLATELET 749 x1000/uL (130-400); RED BLOOD CELL COUNT 3.57 mill/uL (4.7-6.1); RED CELL DISTRIBUTION WIDTH 14.8 % (11.6-14.6)
[2020-09-16 10:51] LABS: BG CARBOXYHEMOGLOBIN 0.4 % (0.5-1.5); BG DEOXYHEMOGLOBIN 3.7 % (0.0-5.0); BG FRACTION INSPIRED OXYGEN 21; BG HCO3 ACT 19.4 mmol/L (22.0-26.0); BG METHEMOGLOBIN 0.4 % (0.0-1.5); BG OXYGEN SATURATION 96.3 % (92.0-98.5); BG OXYHEMOGLOBIN 95.5 % (94.0-97.0); BG PCO2 33.7 mmHg (35.0-45.0); BG PH 7.379 (7.350-7.450); BG PO2 88.6 mmHg (75.0-100.0); BG SAMPLE SITE RIGHT BRACHIAL; BG TOTAL HEMOGLOBIN 10.7 g/dL (12.0-18.0); BG VENT MODE ROOM AIR
[2020-09-16 12:00] VITALS: BP 108/67
[2020-09-16] MEDS ORDERED: VANCOMYCIN 1 G PREMIX 200 ML IV NR (12:00)
[2020-09-16 12:28] LABS: PLATELET ESTIMATE MARKEDLY INCREASED
[2020-09-16 16:00] VITALS: BP 115/70
[2020-09-16] MEDS: ENOXAPARIN 40MG/0.4ML SYR SUBCUT SCH (18:49)
[2020-09-16 20:00] VITALS: BP 103/60
[2020-09-16] MEDS: CEFTRIAXONE 1,000 MG in DEXTROSE 5% WATER 50 ML IV SCH (20:33)
[2020-09-16] MEDS ORDERED: POTASSIUM CHLORIDE INJ 40 MEQ in DEXT 5% WATER 250 ML IV NR (22:00)
[2020-09-17] VITALS: BP 132/78
[2020-09-17] MEDS: METRONIDAZOLE 500 MG PREMIX 100 ML IV SCH ×3 (02:30→18:26)
[2020-09-17] MEDS: DEXT 5%/0.9% NACL KCL 20MEQ/L 1,000 ML IV SCH ×3 (02:30→13:30)
[2020-09-17] MEDS: LIDOCAINE 5% PATCH TOP SCH ×2 (02:37→09:00)
[2020-09-17 04:00] VITALS: BP 105/54
[2020-09-17 08:00] VITALS: BP 115/67
[2020-09-17] MEDS: PANTOPRAZOLE SODIUM 40 MG/VIAL IV SCH (09:45)
[2020-09-17] MEDS: MORPHINE SULFATE 2 MG/ML CPJ (NOT FOR IM USE) IV PRN ×3 (09:47→21:54)
[2020-09-17 12:00] VITALS: BP 119/69
[2020-09-17 15:36] LABS: HEMATOCRIT. 31.1 % (42.0-52.0); HEMOGLOBIN. 10.6 g/dL (14.0-18.0); MEAN CORPUSCULAR HEMOGLOBIN 29.5 pg (28.0-32.0); MEAN CORPUSCULAR VOLUME 86.7 fL (80.0-94.0); MEAN PLATELET VOLUME 7.1 fl (7.4-10.4); PLATELET 780 x1000/uL (130-400); RED BLOOD CELL COUNT 3.59 mill/uL (4.7-6.1); RED CELL DISTRIBUTION WIDTH 15.1 % (11.6-14.6)
[2020-09-17 16:00] VITALS: BP 123/72
[2020-09-17 16:03] LABS: PHOSPHORUS 2.5 mg/dL (2.5-4.9)
[2020-09-17 17:05] LABS: PLATELET ESTIMATE INCREASED
[2020-09-17] MEDS: ENOXAPARIN 40MG/0.4ML SYR SUBCUT SCH (18:26)
[2020-09-17 20:00] VITALS: BP 130/67
[2020-09-17] MEDS: CEFTRIAXONE 1,000 MG in DEXTROSE 5% WATER 50 ML IV SCH (21:44)
[2020-09-17] MEDS: DEXT 5%/0.45% NACL 1000ML 1,000 ML IV SCH (21:44)
[2020-09-18] VITALS: BP 103/94
[2020-09-18] MEDS: METRONIDAZOLE 500 MG PREMIX 100 ML IV SCH ×3 (03:19→18:32)
[2020-09-18] MEDS: DEXT 5%/0.45% NACL 1000ML 1,000 ML IV SCH (03:34)
[2020-09-18] MEDS: MORPHINE SULFATE 2 MG/ML CPJ (NOT FOR IM USE) IV PRN ×3 (03:34→15:01)
[2020-09-18 04:00] VITALS: BP 143/82
[2020-09-18 06:50] LABS: CHLORIDE 126 mEq/L (98-107)
[2020-09-18 06:51] LABS: HEMATOCRIT. 31.5 % (42.0-52.0); MEAN CORPUSCULAR VOLUME 88.5 fL (80.0-94.0); MEAN PLATELET VOLUME 7.2 fl (7.4-10.4); PLATELET 767 x1000/uL (130-400); RED BLOOD CELL COUNT 3.56 mill/uL (4.7-6.1); RED CELL DISTRIBUTION WIDTH 15.2 % (11.6-14.6)
[2020-09-18 06:57] LABS: PHOSPHORUS 2.1 mg/dL (2.5-4.9)
[2020-09-18 08:00] VITALS: BP 144/76
[2020-09-18] MEDS: FAMOTIDINE 20MG/2ML VIAL IV SCH (08:33)
[2020-09-18] MEDS: LIDOCAINE 5% PATCH TOP SCH (08:35)
[2020-09-18] MEDS ORDERED: POTASSIUM CHLORIDE 20MEQ TABLET SR PO SCH (09:00)
[2020-09-18] MEDS: DEXTROSE 5% WATER 1,000 ML IV SCH ×2 (11:11→20:44)
[2020-09-18] MEDS ORDERED: POTASSIUM PHOS,M-BASIC-D-BASIC 15 MMOL in DEXT 5% WATER 245 ML IV NR (11:30)
[2020-09-18 12:00] VITALS: BP 139/71
[2020-09-18 16:00] VITALS: BP 143/74
[2020-09-18] MEDS: DIPHENHYDRAMINE 50MG/ML VIAL IV PRN (18:32)
[2020-09-18] MEDS: ENOXAPARIN 40MG/0.4ML SYR SUBCUT SCH (18:33)
[2020-09-18 20:00] VITALS: BP 125/74
[2020-09-18] MEDS: CEFTRIAXONE 1,000 MG in DEXTROSE 5% WATER 50 ML IV SCH (20:44)
[2020-09-19] VITALS (7 sets, daily range): BP systolic 117–147; BP diastolic 66–87
[2020-09-19] MEDS: METRONIDAZOLE 500 MG PREMIX 100 ML IV SCH ×3 (02:33→18:54)
[2020-09-19] MEDS: DEXTROSE 5% WATER 1,000 ML IV SCH ×3 (04:48→22:06)
[2020-09-19] MEDS: MORPHINE SULFATE 2 MG/ML CPJ (NOT FOR IM USE) IV PRN ×2 (06:23→09:41)
[2020-09-19 07:07] LABS: HEMATOCRIT. 33.5 % (42.0-52.0); HEMOGLOBIN. 10.7 g/dL (14.0-18.0); MEAN CORPUSCULAR HEMOGLOBIN 28.3 pg (28.0-32.0); MEAN CORPUSCULAR VOLUME 88.2 fL (80.0-94.0); MEAN PLATELET VOLUME 7.5 fl (7.4-10.4); PLATELET 760 x1000/uL (130-400); RED CELL DISTRIBUTION WIDTH 15.4 % (11.6-14.6)
[2020-09-19 07:08] LABS: CHLORIDE 124 mEq/L (98-107)
[2020-09-19 07:19] LABS: PHOSPHORUS 2.1 mg/dL (2.5-4.9)
[2020-09-19] MEDS ORDERED: POTASSIUM CHLORIDE 20MEQ TABLET SR PO NR (09:30)
[2020-09-19] MEDS: FAMOTIDINE 20MG/2ML VIAL IV SCH (09:40)
[2020-09-19] MEDS: LIDOCAINE 5% PATCH TOP SCH (09:43)
[2020-09-19 10:33] LABS: PLATELET ESTIMATE INCREASED
[2020-09-19] MEDS ORDERED: POTASSIUM PHOS,M-BASIC-D-BASIC 30 MMOL in DEXT 5% WATER 500 ML IV NR (11:00)
[2020-09-19 18:54] LABS: PLATELET ESTIMATE INCREASED
[2020-09-19] MEDS: ENOXAPARIN 40MG/0.4ML SYR SUBCUT SCH (18:54)
[2020-09-19] MEDS: CEFTRIAXONE 1,000 MG in DEXTROSE 5% WATER 50 ML IV SCH (21:44)
[2020-09-20] VITALS: BP 138/70
[2020-09-20] MEDS: METRONIDAZOLE 500 MG PREMIX 100 ML IV SCH ×2 (02:54→10:24)
[2020-09-20] MEDS: DIPHENHYDRAMINE 50MG/ML VIAL IV PRN (02:55)
[2020-09-20 04:00] VITALS: BP 134/88
[2020-09-20 07:14] LABS: HEMATOCRIT. 32.1 % (42.0-52.0); HEMOGLOBIN. 10.3 g/dL (14.0-18.0); MEAN CORPUSCULAR HEMOGLOBIN 27.9 pg (28.0-32.0); MEAN CORPUSCULAR VOLUME 87.1 fL (80.0-94.0); MEAN PLATELET VOLUME 7.2 fl (7.4-10.4); PLATELET 674 x1000/uL (130-400); RED BLOOD CELL COUNT 3.69 mill/uL (4.7-6.1); RED CELL DISTRIBUTION WIDTH 15.6 % (11.6-14.6)
[2020-09-20 07:18] LABS: CHLORIDE 123 mEq/L (98-107)
[2020-09-20 07:23] LABS: PHOSPHORUS 2.7 mg/dL (2.5-4.9)
[2020-09-20 08:00] VITALS: BP 113/83
[2020-09-20] MEDS: FAMOTIDINE 20MG/2ML VIAL IV SCH (10:22)
[2020-09-20] MEDS: LIDOCAINE 5% PATCH TOP SCH (10:24)
[2020-09-20] MEDS: DEXTROSE 5% WATER 1,000 ML IV SCH ×2 (10:26→21:46)
[2020-09-20 12:00] VITALS: BP 140/90
[2020-09-20 13:21] LABS: PLATELET ESTIMATE INCREASED
[2020-09-20 16:00] VITALS: BP 153/89
[2020-09-20] MEDS: ENOXAPARIN 40MG/0.4ML SYR SUBCUT SCH (19:22)
[2020-09-20 20:00] VITALS: BP 137/86
[2020-09-20] MEDS ORDERED: CEFTRIAXONE 1,000 MG in DEXTROSE 5% WATER 50 ML IV SCH (21:00)
[2020-09-21] VITALS: BP 126/86
[2020-09-21 04:00] VITALS: BP 117/80
[2020-09-21 06:28] LABS: CHLORIDE 118 mEq/L (98-107)
[2020-09-21 06:43] LABS: PHOSPHORUS 2.4 mg/dL (2.5-4.9)
[2020-09-21 06:44] LABS: HEMATOCRIT. 34.6 % (42.0-52.0); HEMOGLOBIN. 10.6 g/dL (14.0-18.0); MEAN CORPUSCULAR HEMOGLOBIN 27.8 pg (28.0-32.0); MEAN CORPUSCULAR VOLUME 90.8 fL (80.0-94.0); MEAN PLATELET VOLUME 7.7 fl (7.4-10.4); PLATELET 580 x1000/uL (130-400); RED BLOOD CELL COUNT 3.81 mill/uL (4.7-6.1); RED CELL DISTRIBUTION WIDTH 15.7 % (11.6-14.6)
[2020-09-21 08:00] VITALS: BP 134/84
[2020-09-21] MEDS: FAMOTIDINE 20MG/2ML VIAL IV SCH (09:11)
[2020-09-21] MEDS: LIDOCAINE 5% PATCH TOP SCH (09:14)
[2020-09-21] MEDS ORDERED: LEVO500T89 MT (10:07)
[2020-09-21 12:00] VITALS: BP 126/86
[2020-09-21 12:03] VITALS: BP 134/84
[2020-09-21 16:02] LABS: PLATELET ESTIMATE INCREASED
[2020-09-21] MEDS ORDERED: ENOXAPARIN 30MG/0.3ML SYR SUBCUT SCH (18:00)
== END 2020-09-21 13:40 | disposition home or self-care (01) | DRG 720 ==
LOC: ER 21:40 → MICUSO 09-15 02:59 → 8WST 09-15 11:57
PROVIDERS: ADMIT Internal Medicine; ATTEND Internal Medicine
DX: A41.9 Sepsis, unspecified organism (principal); K56.609 Unspecified intestinal obstruction, unspecified as to partial versus complete obstruction; K55.9 Vascular disorder of intestine, unspecified; K85.90 Acute pancreatitis without necrosis or infection, unspecified; N17.9 Acute kidney failure, unspecified; E87.2 Acidosis; E44.0 Moderate protein-calorie malnutrition; E83.39 Other disorders of phosphorus metabolism; K56.7 Ileus, unspecified; I11.0 Hypertensive heart disease with heart failure; E87.8 Other disorders of electrolyte and fluid balance, not elsewhere classified; D64.9 Anemia, unspecified; E87.1 Hypo-osmolality and hyponatremia; E87.6 Hypokalemia; K80.20 Calculus of gallbladder without cholecystitis without obstruction; M19.90 Unspecified osteoarthritis, unspecified site; I50.32 Chronic diastolic (congestive) heart failure; N13.9 Obstructive and reflux uropathy, unspecified; R74.01 Elevation of levels of liver transaminase levels; Z82.49 Family history of ischemic heart disease and other diseases of the circulatory system; Z79.82 Long term (current) use of aspirin; Z79.84 Long term (current) use of oral hypoglycemic drugs; Z79.899 Other long term (current) drug therapy; Z91.018 Allergy to other foods; Z68.31 Body mass index [BMI] 31.0-31.9, adult
CPT/HCPCS: 36415; 36600; 74018; 74176; 76700; 80048; 80053; 80061; 80076; 80202; 81003; 82375; 82805; 83605; 83735; 84100; 84145; 84439; 84443; 85025; 85027; 93970; 97162; 97166; 97535; 99291; C1893; C9113; J0696; J1200; J1650; J2270; J2405; J3370; J3480; J3490; J7042; J7060; J7070